=== PATIENT | female | born 1980 | race Caucasian/White ===

== ENCOUNTER 2019-06-24 13:51 | Emergency (ER) | payer BC, MEDICAID, MEDICARE ==
[~2019-06-24] VITALS: Ht 165.1 cm; Wt 65.8 kg
[~2019-06-24 13:51] MED LIST: ADDERALL 20 MG20 MG PO; ALPRAZOLAM0.5 M1; ALPRAZOLAM0.5 MG PO; AMITIZA24 MCG PO; ANUCORT-HC25 MG RC; BIOTIN1 MG; BUTALBITAL-ASA1 EACH; CARAFATE1 GM/10 ML PO; CITALOPRAM HBR20 MG PO; CITALOPRAM HBR40 MG PO; DIAZEPAM10 MG PO; DICYCLOMINE HCL20 MG PO; FIORICET PO; FIORINAL 50-321 EACH PO; GRAPE SEED COMPLEX; HUMIRA20 MG/0.4 IM; IMITREX50 MG PO; KRISTALOSE20 GM PO; MERTAZIPINE PO; MOTRIN800 M1 PO; MULTIVITAMINS1 EAC8; NEXIUM40 MG PO; PANTOPRAZOLE SO40 MG PO; RANITIDINE HCL300 MG PO; REMERON30 MG PO; SINGULAIR10 MG PO; SUCRALFATE1 GM PO; SUPER B COMPLEX; TOFRANIL50 MG PO; TRUBIOTICS; ULTRAM50 MG PO; VALIUM10 MG PO; VALTREX1000 MG; VIMOVO PO; VITAMIN B12; VITAMIN C; VYVANSE50 MG PO; ZOFRAN ODT4 MG PO; ZOLPIDEM TARTRA10 MG PO; lortab PO
--- OUTSIDE RECORDS SUMMARY | 2019-06-24 13:56 | XMS REPORT ---
Author Author [facility] Address Unknown Phone Unavailable Care Team Providers Care Dewer Name Role Phone Unavailable Unavailable Payers Payer Name Policy Type Policy Number Effective Date Expiration Date Problems This patient has no known problems. Allergies, Adverse Reactions, Alerts Allergy Name Allergy Type Status Severity Reaction(s) Onset Date Inactive Date Treating Clinician Comments calcium carbonate DA Active SV 2018-12-04 00:00:00 aspirin DA Active SV 2018-12-04 00:00:00 magnesium DA Active SV 2018-12-04 00:00:00 No Known Allergies DA Active U 2018-04-20 00:00:00 Medications This patient has no known medications.
--- OUTSIDE RECORDS SUMMARY | 2019-06-24 13:56 | XMS REPORT | Continuity of Care Document ---
Author Author [facility] Address Unknown Phone Unavailable Care Team Providers Care Fiber Optic Technician Name Role Phone [facility] Unavailable Unavailable Problems Problem Status Onset Date Classification Date Reported Comments Source Generalized abdominal pain 07/24/2018 02/03/2019 [facility] K22.70 Active 07/14/2018 [facility] M25.531 - PAIN IN RIGHT WRIST Active 04/02/2017 [facility] Gastritis, unspecified, without bleeding 02/03/2019 [facility] Awan's esophagus without dysplasia 02/03/2019 [facility] Diaphragmatic hernia without obstruction or gangrene 02/03/2019 [facility] Foreign body in stomach, initial encounter 02/03/2019 [facility] Migraine Resolved Problem 02/03/2019 ROSASylvain Shannon,[facility] Medications No Data Provided for This Section Allergies, Adverse Reactions, Alerts No Known Medication Allergies Immunizations No Data Provided for This Section Results No Data Provided for This Section Pathology Reports No Data Provided for This Section Diagnostic Reports Report Value Date Source Stomach emptying NM Clinical Indication: - Generalized abdominal pain; Comparison: None Findings: A gastric emptying study is performed using 1 mCi of technetium 99m sulfur colloid mixed with food. There is delayed gastric emptying noted. The T-1/2 is 222 minutes (the normal for solids is less than 90 minutes). There is progression of radiotracer into the bowel. No radiotracer activity is noted over the esophagus to suggest gastroesophageal reflux. IMPRESSION: Delayed gastric emptying could be consistent with gastroparesis and clinical correlation is recommended. SL: [id number] 07/17/2018 [facility] Wrist w/wo contrast MRI EXAMINATION: MRI of the right wrist WITHOUT AND WITH contrast HISTORY: M25.531 Pain in right wrist; sharp continuous right wrist pain x 3 weeks; right wrist ganglion cyst COMPARISON: There are no radiographs available for review. TECHNIQUE: Multiplanar, multisequence magnetic resonance imaging of the right wrist is performed with an extremity coil both prior to and following the administration of 15 mL intravenous contrast. FINDINGS: Cartilage: The joint spaces of the wrist appear normal. The cartilage within the wrist appears normal. The distal radioulnar joint appears normal. Fluid: There is no substantial distal radioulnar, radiocarpal, or midcarpal joint effusion. There is no substantial enhancing synovitis. Bone: The alignment is normal. There is no fracture and no bone marrow signal abnormality. Intrinsic Ligaments: --SL and LT Ligament: The scapholunate ligament including dorsal, volar, and central triangular ligamentous structures are intact throughout their entirety. The fibers of the lunotriquetral ligament are intact. --TFCC: The triangular fibrocartilage complex is normal. Tendons: The first, second, third, fourth, fifth, and sixth extensor tendon compartments are normal. The flexor tendons are normal in signal and morphology. No evidence of tendon rupture or inflammation. There is no enhancing tenosynovitis. Muscles: The visualized musculature is normal in signal and bulk. Soft tissue: There is a nonenhancing multilobular ganglion cyst arising from the dorsal aspect of the articulation between the capitate and trapezoid measuring 8 x 7 x 6 mm in proximal to distal, radial ulnar, and dorsal volar dimensions respectively (series 3, images 15 through 16 and series 5, images 13 through 14). Ulnar and median nerves demonstrate normal signal and morphology. The carpal tunnel and Guyon's canal are normal. IMPRESSION: 1. Nonenhancing multilobular ganglion cyst arising from the dorsal aspect of the articulation between the capitate and trapezoid measuring 8 x 7 x 6 mm in proximal to distal, radioulnar, and dorsal volar dimensions respectively. 2. Otherwise, unremarkable MR examination of the right wrist. Specifically, the intrinsic ligaments are intact, there is no focal chondrosis or subchondral edema, there is no substantial enhancing synovitis, and there is no evidence of tenosynovitis. 04/05/2017 NATALIA Shannon Consultation Notes No Data Provided for This Section Discharge Summaries No Data Provided for This Section History and Physicals No Data Provided for This Section Vital Signs No Data Provided for This Section Encounters Location Location Details Encounter Type Encounter Number Reason For Visit Attending Provider ADM Date DC Date Status Source [facility] [place] [facility] [id number] Racheal Lafleur 04/05/2017 04/06/2017 NAT[facility] [place] [facility] [id number] Rodrigo Rajan 07/17/2018 07/18/2018 [facility] Procedures No Data Provided for This Section Assessment and Plan No Data Provided for This Section Plan of Care No Data Provided for This Section Social History Social History Date Source No data available for this section 07/18/2018 [facility] No data available for this section 04/06/2017 [facility] Shannon Family History No Data Provided for This Section Advance Directives No Data Provided for This Section Functional Status No Data Provided for This Section
--- OUTSIDE RECORDS SUMMARY | 2019-06-24 13:56 | XMS REPORT | Summary of Care ---
Author Author Damien Yousif, Ginny Sylvester Unknown Address Unknown Phone Unavailable Care Team Providers Care Intervention Manager Name Role Phone CECI Payne, NAIMA Unavailable Unavailable SONIA Lira, ALBINO Unavailable Unavailable KENNEY Lira, LIN PAIGE Unavailable Unavailable Damien Yousif, Ginny Unavailable Unavailable SONIA CALZADA [place], ALBINO Cano Unavailable Unavailable PREM P.A., LINDSEY Unavailable Unavailable Unavailable Unavailable Functional Status Name Dates Details Functional status health issues are not documented Status: Name Dates Details Cognitive status health issues are not documented Status: Problems Name Dates Details ADD (attention deficit disorder) (314.00, F98.8) Status: Active Hiatal hernia (553.3, K44.9) Status: Active Depression (311, F32.9) Status: Active Chronic UTI (599.0, N39.0) Status: Active Tachycardia (785.0, R00.0) Status: Active Hyperglycemia (790.29, R73.9) Status: Active Anemia (285.9, D64.9) Status: Active Fibromyalgia (729.1, M79.7) Status: Active Panic disorder (300.01, F41.0) Status: Active Malaise (780.79, R53.81) Status: Active Psoriasis (696.1, L40.9) Status: Active Chronic sinusitis (473.9, J32.9) Status: Active Endometriosis (617.9, N80.9) Status: Active Encounter for monitoring chronic NSAID therapy (V58.83, Z51.81) Status: Active 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 * Start : 18-Jan-2015 Active ProAir HFA 108 (90 Base) MCG/ACT Inhalation Aerosol Solution INHALE 1 TO 2 PUFFS EVERY 4 TO 6 HOURS NEEDED. * Quantity: 1 Refills: 2 NAIMA SALAZAR * Start : 13-Sep-2015 Active 8.5 GM Inhaler Pantoprazole Sodium 40 MG Oral Tablet Delayed Release TAKE 1 TABLET 30 MINUTES BEFORE BREAKFAST DAILY. * Quantity: 90 Refills: 0 ALBINO SCOTT M.D. * Start : 08-Feb-2017 Active Baclofen 20 MG Oral Tablet take 1 and 1/2 tablet by mouth twice a day * Quantity: 90 Refills: 2 LIN MOULTON M.D. * Start : 27-Feb-2017 Active DiazePAM 10 MG Oral Tablet TAKE 1 TABLET 3 TIMES DAILY NEEDED. * Refills: 0 Active Inderal 20 MG TABS TAKE 1 TABLET DAILY as needed * Refills: 0 Active Albuterol Sulfate 1.25 MG/3ML Inhalation Nebulization Solution USE 1 UNIT VIA NEBULIZER EVERY 4 TO 6 HOURS NEEDED * Quantity: 25 Refills: 2 NAIMA SALAZAR * Start : 26-Apr-2017 Active 3 ML Plas Cont Symbicort 80-4.5 MCG/ACT Inhalation Aerosol INHALE 2 PUFFS DAILY * Refills: 0 Active 6.9 GM Inhaler Niskrjivcs-MEII-Yeuifhsf 50-325-40 MG Oral Tablet TAKE 1 TABLET BY MOUTH EVERY 8 HOURS * Quantity: 30 Refills: 0 ALBINO SCOTT M.D. * Start : 26-Mar-2017 Active ALPRAZolam 1 MG Oral Tablet * Refills: 0 * Start : 09-May-2017 Active CeleXA 40 MG Oral Tablet TAKE 1 TABLET DAILY. * Refills: 0 * Start : 09-May-2017 Active Xyzal 5 MG Oral Tablet TAKE 1 TABLET DAILY. * Refills: 0 * Start : 09-May-2017 Active Acetaminophen 650 MG/20.3ML Oral Solution TAKE 5 ML BY MOUTH EVERY 4 TO 6 HOURS NEEDED FOR PAIN. * Refills: 0 * Start : 09-May-2017 Active 20.3 ML Cup SulfaSALAzine 500 MG Oral Tablet TAKE 2 TABLETS TWICE DAILY. Start at 500mg daily, and increase based on titrati on schedule provided. * Quantity: 120 Refills: 1 KENNEY Lira, LIN PAIGE * Start : 09-May-2017 Active Allergies and Adverse Reactions Name Dates Details Eladio PTWK (Allergy) Status: Active Past Medical History Name Dates Details History of systemic lupus erythematosus (SLE) (V12.29, Z87.39) Status: Resolved Procedures Procedure Dates Details History of Total Abdominal Hysterectomy Completed History of Cervical Vertebral Fusion Completed History of Cholecystectomy Completed History of Total Abdominal Hysterectomy With Removal Of Both Ovaries Completed History of Hysterectomy Completed History of Cervical Vertebral Fusion Completed History of Cholecystectomy Completed History of Salpingo-oophorectomy Completed History of Tonsillectomy With Adenoidectomy Completed History of Appendectomy Completed 29-Dec-2015 Immunization Name Dates Details Fluzone Quadrivalent 0.5 ML Intramuscular Suspension Prefilled Syringe Lot #: [id number] on: 09-Sep-2015 Zoster (Zostavax) Lot #: [id number] on: 09-Sep-2015 Pneumococcal polysaccharide vaccine, 23 valent Lot #: [id number] on: 30-Sep-2015 Family History Name Dates Details Family history of Leukemia (208.90, C95.90) Status: Active Name Dates Details Family history of Cancer (199.1, C80.1) Status: Active Name Dates Details Family history of Cancer (199.1, C80.1) Status: Active Family history of Diabetes (250.00, E11.9) Status: Active Name Dates Details Family history of Cancer (199.1, C80.1) Status: Active Family history of Heart disease (429.9, I51.9) Status: Active Family history of Alcoholism (303.90, F10.20) Status: Active Family history of Diabetes (250.00, E11.9) Status: Active Name Dates Details Family history of Arthritis (716.90, M19.90) Status: Active Family history of Depression (311, F32.9) Status: Active Name Dates Details Family history of lung cancer (V16.1, Z80.1) Status: Active Family history of hyperlipidemia (V18.19, Z83.49) Status: Active Family history of Cancer (199.1, C80.1) Status: Active Family history of Psoriasis (696.1, L40.9) Status: Active Name Dates Details Family history of Psoriasis (696.1, L40.9) Status: Active Social History Name Dates Details - Status: Name Dates Details Never smoker Never smoker Vital Signs Date Test Result Details No Known Vitals to report Results Date Description Value Details Results not documented Plan of Care Name Dates Details Planned Observations Planned Goals not documented Instructions Name Dates Details Instructions not documented Encounters Appointment; BLANCA RUSS M.D. Encounter Diagnosis: Problem not documented On: 16-Dec-2015 9:00 Appointment; KARON KEANE D.O. Encounter Diagnosis: Problem not documented On: 07-Feb-2016 12:45 Appointment; KARON KEANE D.O. Encounter Diagnosis: Problem not documented On: 16-Feb-2016 10:15 Appointment; ALBINO SCOTT M.D. Encounter Diagnosis: Problem not documented On: 27-Feb-2016 10:15 Appointment; BLANCA RUSS M.D. Encounter Diagnosis: Problem not documented On: 29-Feb-2016 11:00 Appointment; SHERRY BILLINGS M.D. Encounter Diagnosis: Problem not documented On: 22-Mar-2016 13:00 Appointment; SHERRY BILLINGS M.D. Encounter Diagnosis: Problem not documented On: 12-Apr-2016 13:00 Appointment; ALBINO SCOTT M.D. Encounter Diagnosis: Problem not documented On: 17-Apr-2016 9:15 Appointment; BLANCA RUSS M.D. Encounter Diagnosis: Problem not documented On: 03-Jul-2016 14:30 Appointment; LIN MOULTON M.D. Encounter Diagnosis: Problem not documented On: 03-Jul-2016 15:00 Appointment; ALBINO SCOTT M.D. Encounter Diagnosis: Problem not documented On: 05-Jul-2016 9:45 Appointment; SHERRY BILLINGS M.D. Encounter Diagnosis: Problem not documented On: 26-Jul-2016 9:15 Appointment; SHERRY BILLINGS M.D. Encounter Diagnosis: Problem not documented On: 06-Sep-2016 10:30 Appointment; ALBINO SCOTT M.D. Encounter Diagnosis: Problem not documented On: 27-Sep-2016 16:15 Appointment; LIN MOULTON M.D. Encounter Diagnosis: Problem not documented On: 04-Oct-2016 10:00 Appointment; LIN MOULTON M.D. Encounter Diagnosis: Problem not documented On: 11-Oct-2016 15:30 Appointment; ALBINO SCOTT M.D. Encounter Diagnosis: Problem not documented On: 24-Dec-2016 9:15 Appointment; LIN MOULTON M.D. Encounter Diagnosis: Problem not documented On: 17-Jan-2017 15:00 Appointment; NAIMA ORNELAS P.A. Encounter Diagnosis: Problem not documented On: 01-Feb-2017 14:45 Appointment; LIN MUOLTON M.D. Encounter Diagnosis: Problem not documented On: 26-Mar-2017 10:30 Appointment; ALBINO SCOTT M.D. Encounter Diagnosis: Problem not documented On: 26-Mar-2017 11:15 Appointment; LIN MOULTON M.D. Encounter Diagnosis: Problem not documented On: 09-May-2017 16:00 Appointment; LIN MOULTON M.D. Encounter Diagnosis: Problem not documented On: 20-Jun-2017 16:00 Appointment; JOSUE FELICIANO M.D. Encounter Diagnosis: Problem not documented On: 08-Jul-2017 10:30
--- OUTSIDE RECORDS SUMMARY | 2019-06-24 13:56 | XMS REPORT | Summary of Care ---
Author Author [facility] [place] Organization [facility] [place] Address Unknown Phone Unavailable Encounter HQ Encntr_alena(FIN) [id number] Date(s): 04/05/17 - 04/05/17 [facility] [place] [address] [place] [phone] [phone] Discharge Disposition: Home or Self Care Attending Physician: Racheal Lafleur MD Vital Signs No data available for this section Problem List Condition Effective Dates Status Health Status Informant Migraine(Confirmed) Resolved Allergies, Adverse Reactions, Alerts Substance Reaction Severity Status NKDA Active Medications No data available for this section Results No data available for this section Immunizations No data available for this section Procedures No data available for this section Social History No data available for this section Assessment and Plan No data available for this section
--- OUTSIDE RECORDS SUMMARY | 2019-06-24 13:56 | XMS REPORT | Summary of Care ---
Author Author [facility] Organization [facility] Address Unknown Phone Unavailable Encounter HQ Demi_alena(FIN) [id number] Date(s): 07/17/18 - 07/17/18 [facility] [address] [place] [address]- Encounter Diagnosis Generalized abdominal pain (Final) - 07/23/18 Gastritis, unspecified, without bleeding (Final) - Awan's esophagus without dysplasia (Final) - Diaphragmatic hernia without obstruction or gangrene (Final) - Foreign body in stomach, initial encounter (Final) - Discharge Disposition: Home or Self Care Attending Physician: Rodrigo Rajan MD Referring Physician: Rodrigo Rajan MD Vital Signs No data available for [...]
[2019-06-24] MEDS ORDERED: DICYCLOMINE HCL 10 MG CAP ONE (14:25)
[2019-06-24 15:21] VITALS: BP 122/64
[2019-06-24] MEDS ORDERED: DICYCLOMINE HCL10 MG PO (15:23)
[2019-06-24] MEDS ORDERED: ONDANSETRON ODT8 MG PO (15:25)
[2019-06-24] MEDS ORDERED: DICYCLOMINE HCL 20 MG TAB PO ONE (15:30)
== END 2019-06-24 15:34 | disposition home or self-care (01) ==
LOC: FSED 13:51
DX: R10.13 Epigastric pain (principal); K29.50 Unspecified chronic gastritis without bleeding; K21.9 Gastro-esophageal reflux disease without esophagitis
CPT/HCPCS: 99283

== ENCOUNTER 2022-03-04 14:33 | Emergency (ER) | payer BC, OTHER ==
[~2022-03-04] VITALS: Ht 165.1 cm; Wt 69.4 kg
[~2022-03-04 14:33] MED LIST changes: +DICYCLOMINE HCL10 MG PO; +ONDANSETRON ODT8 MG PO
[2022-03-04] MEDS ORDERED: SODIUM CHLORIDE 0.9% 1000ML 1,000 ML IV STA (14:59)
[2022-03-04] MEDS ORDERED: KETOROLAC TROMETHAMINE 30 MG/ML VIAL IV STA (14:59)
[2022-03-04] MEDS ORDERED: SODIUM CHLORIDE 0.9% 1000ML 1,000 ML ONE (15:13)
[2022-03-04] MEDS ORDERED: KETOROLAC TROME10 MG PO (16:17)
[2022-03-04] MEDS ORDERED: CIPRO500 MG PO (16:17)
== END 2022-03-04 16:21 | disposition home or self-care (01) ==
LOC: FSED 15:02
DX: R10.9 Unspecified abdominal pain (principal); N39.0 Urinary tract infection, site not specified; M32.9 Systemic lupus erythematosus, unspecified; K21.9 Gastro-esophageal reflux disease without esophagitis; F41.9 Anxiety disorder, unspecified; J45.909 Unspecified asthma, uncomplicated; N80.9 Endometriosis, unspecified
CPT/HCPCS: 74176; 80048; 80076; 81003; 81025; 85025; 87086; 99283; J1885; J7030

== ENCOUNTER 2023-05-22 10:13 | Emergency (ER) | payer OTHER ==
[~2023-05-22] VITALS: Ht 165.1 cm; Wt 76.7 kg
[~2023-05-22 10:13] MED LIST changes: +CIPRO500 MG PO; +DEXILANT30 MG; +KETOROLAC TROME10 MG PO; +LINZESS145 MCG; +METHOCARBAMOL500 MG PO; +PREDNISONE20 MG PO
[2023-05-22 10:26] VITALS: O2SAT 100
[2023-05-22] MEDS ORDERED: KETOROLAC TROMETHAMINE 60 MG/2 ML VIAL IM ONE (11:00)
[2023-05-22] MEDS ORDERED: KETOROLAC TROME10 MG PO (11:01)
== END 2023-05-22 11:31 | disposition home or self-care (01) ==
LOC: ER 10:18
DX: R20.2 Paresthesia of skin (principal); M54.12 Radiculopathy, cervical region; M32.9 Systemic lupus erythematosus, unspecified; J45.909 Unspecified asthma, uncomplicated; F41.9 Anxiety disorder, unspecified; K21.9 Gastro-esophageal reflux disease without esophagitis; M54.9 Dorsalgia, unspecified; G89.29 Other chronic pain
CPT/HCPCS: 99282; J1885

== ENCOUNTER 2024-09-23 12:37 | Emergency (ER) | payer OTHER ==
[~2024-09-23] VITALS: Ht 165.1 cm; Wt 77.8 kg
[~2024-09-23 12:37] MED LIST changes: +HYDROCODON-ACE1 EA12 PO
[2024-09-23] MEDS ORDERED: CLONAZEPAM1 MG PO (12:55)
[2024-09-23 13:43] VITALS: PULSE 60; RESP 18; TEMP 98.3; O2SAT 99
== END 2024-09-23 13:43 | disposition home or self-care (01) ==
LOC: FSED 12:49
DX: R60.9 Edema, unspecified (principal); M79.642 Pain in left hand; M79.641 Pain in right hand; K21.9 Gastro-esophageal reflux disease without esophagitis; M54.9 Dorsalgia, unspecified; G89.29 Other chronic pain; F41.9 Anxiety disorder, unspecified; F32.A Depression, unspecified; N80.9 Endometriosis, unspecified
CPT/HCPCS: 80053; 85025; 99283

== ENCOUNTER 2024-10-09 15:02 | Emergency (ER) | payer OTHER ==
[~2024-10-09] VITALS: Ht 165.1 cm; Wt 77.6 kg
[~2024-10-09 15:02] MED LIST changes: +CLONAZEPAM1 MG PO
[2024-10-09 15:43] VITALS: PULSE 94; RESP 15; TEMP 98.7; O2SAT 100
[2024-10-09 15:59] LABS: BASOPHILS % 0.5 % (0.0-1.0); EOSINOPHILS # (AUTO) 0.1 (0.0-0.4); EOSINOPHILS % 1.3 % (0.0-6.0); HEMATOCRIT 38.8 % (34.2-44.1); HEMOGLOBIN 12.8 g/dL (12.0-16.0); LYMPHOCYTES # (AUTO) 3.3 (1.0-3.2); LYMPHOCYTES % 43.1 % (18.0-39.1); MEAN CORPUSCULAR HEMOGLOBIN 30.4 pg (28-32); MEAN CORPUSCULAR VOLUME 92.2 fL (81-99); MONOCYTES # (AUTO) 0.6 (0.2-0.8); MONOCYTES % 7.8 % (4.4-11.3); NEUTROPHILS # (AUTO) 3.6 (2.1-6.9); NEUTROPHILS % 46.7 % (38.7-80.0); PLATELET COUNT 225 x10e3/uL (140-360); RED BLOOD COUNT 4.21 x10e6/uL (3.6-5.1); RED CELL DISTRIBUTION WIDTH 12.5 % (11.7-14.4); WHITE BLOOD COUNT 7.73 x10e3/uL (4.8-10.8)
[2024-10-09 16:11] LABS: INR 0.86; PARTIAL THROMBOPLASTIN TIME 26.6 seconds (23.8-35.5); PROTHROMBIN TIME 12.3 seconds (11.9-14.5)
[2024-10-09 16:19] LABS: ALBUMIN 4.2 g/dL (3.5-5.0); ALBUMIN/GLOBULIN RATIO 1.2 (0.8-2.0); ANION GAP 16.2 mmol/L (8-16); BILIRUBIN,TOTAL 0.2 mg/dL (0.2-1.2); CALCIUM 9.6 mg/dL (8.4-10.2); CREATININE, SERUM 0.89 mg/dL (0.57-1.11); MAGNESIUM 2.2 MG/DL (1.3-2.1); POTASSIUM 4.2 mmol/L (3.5-5.1); TOTAL PROTEIN 7.6 g/dL (6.5-8.1)
[2024-10-09] MEDS ORDERED: IOPAMIDOL 370 MG/ML 100 ML INFUS..BTL INJ ONE (17:05)
[2024-10-09] MEDS: SODIUM CHLORIDE 0.9% 1000ML 1,000 ML IV STA (17:15)
[2024-10-09] MEDS: DICYCLOMINE HCL 20 MG/2 ML VIAL IM ONE (17:15)
[2024-10-09] MEDS: ONDANSETRON HCL INJ 2MG/ML 2ML 2 MG/ML VIAL IV STA (17:15)
[2024-10-09] MEDS: FAMOTIDINE 20 MG/2 ML VIAL IV STA (17:15)
[2024-10-09 17:56] LABS: AMPHETAMINES SCREEN,URINE NEGATIVE (NEGATIVE); BENZODIAZEPINES SCREEN,URINE NEGATIVE (NEGATIVE); BILIRUBIN,URINE NEGATIVE (NEGATIVE); CANNABINOIDS SCREEN,URINE NEGATIVE (NEGATIVE); CLARITY,URINE SL CLOUDY (CLEAR); COCAINE SCREEN,URINE NEGATIVE (NEGATIVE); COLOR,URINE YELLOW (YELLOW); GLUCOSE, URINE NEGATIVE (NEGATIVE); KETONES,URINE NEGATIVE (NEGATIVE); LEUKOCYTE ESTERASE ,URINE NEGATIVE (NEGATIVE); METHADONE SCREEN, URINE NEGATIVE (NEGATIVE); NITRITE,URINE NEGATIVE (NEGATIVE); OPIATES SCREEN,URINE NEGATIVE (NEGATIVE); PH,URINE 7 (5 - 7); PHENCYCLIDINE SCREEN,URINE NEGATIVE (NEGATIVE); PROTEIN,URINE DIPSTICK NEGATIVE (NEGATIVE); URINE UROBILINOGEN 0.2 mg/dL (0.2 - 1)
[2024-10-09 18:03] LABS: BACTERIA,URINE MODERATE /HPF; EPITHELIAL CELLS,URINE FEW /LPF
[2024-10-09] MEDS ORDERED: DICYCLOMINE HCL20 MG PO (18:14)
[2024-10-09] MEDS ORDERED: ONDANSETRON ODT4 MG PO (18:14)
== END 2024-10-09 18:39 | disposition home or self-care (01) ==
LOC: ER 15:25
DX: R11.2 Nausea with vomiting, unspecified (principal); K57.90 Diverticulosis of intestine, part unspecified, without perforation or abscess without bleeding; R19.7 Diarrhea, unspecified; K76.0 Fatty (change of) liver, not elsewhere classified; R16.1 Splenomegaly, not elsewhere classified
CPT/HCPCS: 36415; 74177; 80053; 80307; 81001; 83690; 83735; 85025; 85610; 85730; 99284; J0500; J2405; J2470; J7030; Q9967